=== PATIENT | male | born 1940 | race Caucasian/White ===

== ENCOUNTER → 2018-09-30 | Outpatient (CLI) | payer MEDICARE ==
--- NOTE | 2018-09-30 12:32 | P.SLEEP ---
History of Present Illness H&P Date: 09/30/18 This is a 78-year-old male patient with known history of obstructive sleep apnea. The patient is known to me. I seen this patient in my clinic in the past. He is coming in for ongoing issues regarding his LUCY treatment. Furthermore, it was noted that his pacemaker has been pacing him more abundantly and this was a concern that was raised by the cardiology. For that reason the patient was sent to the sleep center for reevaluation. This patient has severe LUCY with an AHI of 65. Upon initial titration he was titrated to a BiPAP pressure of 17/11. During follow-up visits in my office, he was having difficulties in tolerating the high pressures and I lowered pressures down to 14 /10. My last evaluation this patient was back in September 2017 and he requested an increase in the pressure and I was able to increase his is BiPAP pressure to 16/12 cm of water. Back then he was compliant and he was averaging more than 8 hours of BiPAP use every night. The patient continues to be compliant with his BiPAP treatment. He has and all other generation ResMed S9 series. I noted that his AHI while on treatment quite high. It was noted that his AHI last night was 35. He is not seeing the benefits used in the past. For that reason we are recommending a titration to update his machine and pressure setting. He currently uses a nose mask. He is known to have congestion heart failure, hypertension, hypothyroidism, diabetes mellitus and hyperlipidemia. His weight has been stable. He is possibly snoring while on BiPAP treatment. No symptoms of restless leg syndrome. No edema lower extremity. He has remote history of pulmonary embolism and he is on anticoagulants lifetime. Review of Systems Constitutional: Reports daytime sleepiness, Reports fatigue Eyes: denies as per HPI, denies blurred vision, denies bulging eye, denies decreased vision, denies diplopia, denies discharge, denies dry eye, denies irritation, denies itching, denies pain, denies photophobia, denies loss of peripheral vision, denies loss of vision, denies tunnel vision/blind spots Ears: deny: decreased hearing, ear discharge, earache, tinnitus Ears, nose, mouth and throat: Reports as per HPI Cardiovascular: Reports decreased exercise tolerance, Reports dyspnea on exertion, Denies chest pain, Denies shortness of breath Respiratory: Reports dyspnea Gastrointestinal: Denies abdominal pain, Denies diarrhea, Denies nausea, Denies vomiting Genitourinary: Reports as per HPI Musculoskeletal: Reports as per HPI Musculoskeletal: absent: ankle pain, ankle stiffness, ankle swelling, as per HPI , elbow pain, elbow stiffness, elbow swelling, foot pain, foot stiffness, foot swelling, hand pain, hand stiffness, hand swelling, hip pain, hip stiffness, hip swelling, knee pain, knee stiffness, knee swelling, shoulder pain, shoulder stiffness, shoulder swelling, wrist pain, wrist stiffness, wrist swelling Integumentary: Denies pruritus, Denies rash Neurological: Reports weakness Psychiatric: Reports sleep disturbances Endocrine: Reports as per HPI Hematologic/Lymphatic: Reports as per HPI Allergic/Immunologic: Reports as per HPI Past Medical History Past Medical History: Cancer, Diabetes Mellitus, Deep Vein Thrombosis (DVT), Hearing Disorder / Deafness, Hyperlipidemia, Hypertension, Osteoarthritis (OA), Pulmonary Embolus (PE), Sleep Apnea/CPAP/BIPAP, Thyroid Disorder Additional Past Medical History / Comment(s): Obstructive sleep apnea details as mentioned above, pulmonary embolism, CHF, hypertension, diabetes mellitus type 2, hyperlipidemia, hypothyroidism, remote history of DVT, history of obesity, history of skin cancer and history of pacemaker insertion for bradycardia arrhythmias. History of Any Multi-Drug Resistant Organisms: None Reported Past Surgical History: Heart Catheterization, Joint Replacement, Pacemaker Additional Past Surgical History / Comment(s): Total left knee replacement, pacemaker insertion Past Anesthesia/Blood Transfusion Reactions: No Reported Reaction Type of Cardiac Device: Permanent Pacemaker Device Placement Date:: 2013 Smoking Status: Former smoker - Past Family History Sister(s) Family Medical History: Cancer Medications and Allergies Home Medications Medication Instructions Recorded Confirmed Type Atenolol 100 mg pe PO BID 10/05/15 10/05/15 History Citalopram Hydrobromide [CeleXA] 10 mg PO DAILY 10/05/15 10/05/15 History Cyanocobalamin (Vitamin B-12) 2,000 mcg PO DAILY 10/05/15 10/07/15 History [Vitamin B-12] Furosemide 20 mg PO DAILY 10/05/15 10/05/15 History Insulin Aspart [NovoLOG Flexpen] 20 units SQ AC-TID 10/05/15 10/07/15 History Insulin Detemir [Levemir Flextouch] 60 units SQ BID 10/05/15 10/07/15 History Levothyroxine Sodium [Synthroid] 137 mcg PO DAILY 10/05/15 10/05/15 History Losartan/Hydrochlorothiazide 1 tab PO DAILY 10/05/15 10/05/15 History [Losartan-Hctz 100-12.5 mg Tab] Potassium Chloride [Klor-Con M10] 10 meq PO DAILY 10/05/15 10/05/15 History Rosuvastatin Calcium [Crestor] 5 mg PO HS 10/05/15 10/05/15 History Warfarin Sodium 5 mg PO SUMOTUWETHFR 10/05/15 10/05/15 History amLODIPine BESYLATE [Amlodipine 10 mg PO DAILY 10/05/15 10/05/15 History Besylate] Allergies Allergy/AdvReac Type Severity Reaction Status Date / Time No Known Allergies Allergy Verified 10/05/15 10:35 Physical Exam Gen. appearance, comfortable likely distress.The patient appeared well nourished and normally developed. Vital signs as documented. Head exam is unremarkable. No scleral icterus or corneal arcus noted. Neck is without jugular venous distension, thyromegaly, or carotid bruits. Carotid upstrokes are brisk bilaterally. Lungs are clear to auscultation and percussion. Cardiac exam reveals the PMI to be normally sized and situated. Rhythm is regular. First and second heart sounds normal. No murmurs, rubs or gallops. Abdominal exam reveals normal bowel sounds, no masses, no organomegaly and no aortic enlargement. Extremities are nonedematous and both femoral and pedal pulses are normal. Neurologically awake and alert and there is no focal neurological deficit. Psychiatrically the patient has no anxiety or depression.Examination of the skin revealed no evidence of significant rashes, suspicious appearing nevi or other concerning lesions. Assessment and Plan Assessment: 1 obstructive sleep apnea syndrome. The patient has severe LUCY with an AHI of 65 and currently is on a BiPAP pressure of 16/12 cm of water. The patient's treatment is suboptimal. He remains asymptomatic. He continues to have residual respiratory events while being on BiPAP therapy as evident on his older generation ResMed S9 series. The patient is coming in for reevaluation. A repeat BiPAP titration will be done. 2 congestion heart failure 3 history of pacemaker insertion for bradycardia arrhythmias 4 remote history of DVT and pulmonary embolism 5 hypertension 6 diabetes mellitus type 2 7 hyperlipidemia 8 hypothyroidism Plan The patient will be sent for another BiPAP titration. His machine will be updated. He'll be offered a new machine with a updated pressure setting. We will monitor his compliance carefully to make sure his AHI is well brought below 5. He has severe LUCY baseline. Encourage weight loss. Optimize rest of the risk factors for cardiovascular disease. 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 Sleep Note - Sleep Note Sleep Note: Temperature: 98 Pulse Rate: 77 Respiratory Rate:18 Blood Pressure: 145/71 SpO2: 98 Height: 5 9 Weight: 252 BMI: 37.2 Neck Circumference:17
== END | disposition home or self-care (01) ==
LOC: SLEEP 11:05
PROVIDERS: ATTEND Internal Medicine Critical Care Medicine
DX: G47.33 Obstructive sleep apnea (adult) (pediatric) (principal); I11.0 Hypertensive heart disease with heart failure; I50.9 Heart failure, unspecified; E11.9 Type 2 diabetes mellitus without complications; E78.5 Hyperlipidemia, unspecified; E03.9 Hypothyroidism, unspecified; Z86.711 Personal history of pulmonary embolism; Z86.718 Personal history of other venous thrombosis and embolism; Z87.891 Personal history of nicotine dependence; Z95.0 Presence of cardiac pacemaker; Z79.4 Long term (current) use of insulin; Z79.01 Long term (current) use of anticoagulants; Z79.899 Other long term (current) drug therapy
CPT/HCPCS: 99211

== ENCOUNTER → 2023-05-28 | Outpatient (CLI) | payer MEDICARE ==
[2023-05-28 16:53] LABS: Basophils # (A) 0.05 X 10*3/uL (0.00-0.10); Basophils % (A) 0.6 %; Eosinophils # (A) 0.05 X 10*3/uL (0.04-0.35); Eosinophils % (A) 0.6 %; HCT 55.7 % (39.6-50.0); Lymphocytes # (A) 1.79 X 10*3/uL (0.90-5.00); Lymphocytes % (A) 20.3 %; MCH 30.4 pg (27.0-32.0); MCHC 32.3 d/dL (32.0-37.0); MCV 94.1 FL (80.0-97.0); Monocytes % (A) 7.9 %; NRBC Per 100 WBC 0 X 10*3/uL (0.00-0.01); Neutrophils % (A) 70.4 %; Platelet Count 143 X 10*3/uL (140-440); RBC 5.92 X 10*6/uL (4.40-5.60); RDW 14.7 % (11.5-14.5); WBC 8.81 X 10*3/uL (4.50-10.00)
[2023-05-28 19:17] LABS: Blood Urea Nitrogen 17.7 mg/dL (9.0-27.0); Calcium 9.3 mg/dL (8.7-10.3); Carbon Dioxide 23.9 mmol/L (21.6-31.8); Chloride 104 mmol/L (96-109); Glucose 262 mg/dL (70-110); Potassium 4.5 mmol/L (3.5-5.5); Sodium 141 mmol/L (135-145)
== END | disposition home or self-care (01) ==
LOC: LABPAT 10:40
PROVIDERS: ATTEND Urology
DX: Z01.812 Encounter for preprocedural laboratory examination (principal); R31.0 Gross hematuria
CPT/HCPCS: 36415; 80048; 85025

== ENCOUNTER → 2023-08-14 | Outpatient (CLI) | payer MEDICARE ==
[2023-08-14 15:29] LABS: BUN/Creat Ratio 12.64 Ratio (12.00-20.00); Blood Urea Nitrogen 13.9 mg/dL (9.0-27.0); Calcium 9.4 mg/dL (8.7-10.3); Carbon Dioxide 28.4 mmol/L (21.6-31.8); Chloride 106 mmol/L (96-109); Glucose 143 mg/dL (70-110); Sodium 144 mmol/L (135-145)
[2023-08-14 15:40] LABS: Basophils # (A) 0.07 X 10*3/uL (0.00-0.10); Basophils % (A) 0.8 %; Eosinophils # (A) 0.07 X 10*3/uL (0.04-0.35); Eosinophils % (A) 0.8 %; HCT 49.5 % (39.6-50.0); HGB 16.1 g/dL (13.0-17.0); Lymphocytes # (A) 2.02 X 10*3/uL (0.90-5.00); Lymphocytes % (A) 22.9 %; MCH 31.9 pg (27.0-32.0); MCHC 32.5 g/dL (32.0-37.0); Mean Platelet Volume 11.1 FL (9.5-12.2); Monocytes # (A) 0.79 X 10*3/uL (0.20-1.00); Monocytes % (A) 8.9 %; NRBC Per 100 WBC 0 X 10*3/uL (0.00-0.01); Neutrophils # (A) 5.86 X 10*3/uL (1.80-7.70); Neutrophils % (A) 66.3 %; Platelet Count 162 X 10*3/uL (140-440); RBC 5.05 X 10*6/uL (4.40-5.60); RDW 13.6 % (11.5-14.5); WBC 8.84 X 10*3/uL (4.50-10.00)
== END | disposition home or self-care (01) ==
LOC: LABPAT 09:14
PROVIDERS: ATTEND Urology
DX: Z01.812 Encounter for preprocedural laboratory examination (principal); C67.2 Malignant neoplasm of lateral wall of bladder
CPT/HCPCS: 36415; 80048; 85025

== ENCOUNTER 2023-08-22 05:40 | Day surgery (SDC) | payer MEDICARE ==
--- NOTE | 2023-08-21 07:29 | P.GSHP ---
History of Present Illness H&P Date: 08/21/23 Chief Complaint: Bladder cancer The patient is an 82-year-old white male who underwent photovaporization of the prostate on 2 occasions in 2019. He now presents with urinary urge incontinence and occasional incontinence without awareness, requiring the use of 2 briefs daily. He has been found to empty his bladder incompletely. There is evidence of hematuria. Cystoscopy revealed erythema of the lateral bladder murphy. He underwent cystoscopy with bladder biopsies in 06/06/2023. The right lateral bladder wall biopsy revealed noninvasive, low-grade urothelial carcinoma. The remaining biopsies were negative. He now comes for formal transurethral resection. He has been cleared by cardiology. He has a Medtronic device and it has been recommended that a magnet be placed over the device while using cautery. - Cardiovascular Cardiovascular: Reports high blood pressure, Reports irregular heart beat - Genitourinary (Male) Genitourinary: Reports incontinence Past Medical History Past Medical History: Cancer, Diabetes Mellitus, Deep Vein Thrombosis (DVT), Hearing Disorder / Deafness, Hyperlipidemia, Hypertension, Osteoarthritis (OA), Pulmonary Embolus (PE), Sleep Apnea/CPAP/BIPAP, Thyroid Disorder Additional Past Medical History / Comment(s): Obstructive sleep apnea USES CPAP. Pulmonary embolism, CHF, hypertension, diabetes mellitus type 2, hyperlipidemia, hypothyroidism, remote history of DVT, history of obesity, history of skin cancer and history of pacemaker insertion for bradycardia arrhythmias. History of Any Multi-Drug Resistant Organisms: None Reported Past Surgical History: Heart Catheterization, Joint Replacement, Pacemaker Additional Past Surgical History / Comment(s): BLADDER BX ON 06/06/23, POS. NEW REPLACED PACEMAKER 07/13/23 @ [facility]. Total left knee replacement, pacemaker insertion Past Anesthesia/Blood Transfusion Reactions: No Reported Reaction Type of Cardiac Device: Permanent Pacemaker Device Placement Date:: 2006, 2013, 2022 Past Psychological History: Depression Additional Psychological History / Comment(s): BEGINNING DEMENTIA, LIVES ALONE, SIGNS HIS OWN CONSENT. DAUGHTER, MELISSA BENNETT IS POA. Smoking Status: Former smoker Past Alcohol Use History: Occasional Additional Past Alcohol Use History / Comment(s): SMOKED 15 YEARS, 1/2 PPD, QUIT 1980. Past Drug Use History: None Reported - Past Family History Sister(s) Family Medical History: Cancer Medications and Allergies Home Medications Medication Instructions Recorded Confirmed Type Citalopram Hydrobromide [CeleXA] 20 mg PO DAILY 10/05/15 08/19/23 History Insulin Detemir [Levemir Flextouch] 16 units SQ [facility] [place] 10/05/15 08/19/23 History Levothyroxine Sodium [Synthroid] 150 mcg PO DAILY 10/05/15 08/19/23 History Potassium Chloride [Klor-Con M10] 10 meq PO DAILY 10/05/15 08/19/23 History Rosuvastatin Calcium [Crestor] 20 mg PO HS 10/05/15 08/19/23 History Apixaban [Eliquis] 5 mg PO BID 05/31/23 08/19/23 History Aspirin [Adult Low Dose Aspirin EC] 81 mg PO DAILY 05/31/23 08/19/23 History Empagliflozin [Jardiance] 25 mg PO QAM 05/31/23 08/19/23 History Glimepiride [Amaryl] 4 mg PO [facility] [place] 05/31/23 08/19/23 History Iron(Unk) 27 mg PO HS 05/31/23 08/19/23 History Isosorbide Mononitrate ER [Imdur] 30 mg PO DAILY 05/31/23 08/19/23 History Magnesium (Unk) 400 mg PO HS 05/31/23 08/19/23 History Memantine HCl [Namenda] 5 mg PO BID 05/31/23 08/19/23 History Multivitamins, Thera [Multivitamin 1 tab PO DAILY 05/31/23 08/19/23 History (formulary)] Sacubitril/Valsartan [Entresto 49 1 tab PO BID 05/31/23 08/19/23 History mg-51 mg Tablet] Torsemide [Demadex] 20 mg PO DAILY 05/31/23 08/19/23 History carvediloL [Coreg] 12.5 mg PO BID 05/31/23 08/19/23 History Pantoprazole [Protonix] 40 mg PO QAM 08/19/23 08/19/23 History Allergies Allergy/AdvReac Type Severity Reaction Status Date / Time No Known Allergies Allergy Verified 08/19/23 10:24 Surgical - Exam - General well developed, well nourished, no distress - Respiratory normal respiratory effort - Abdomen Abdomen: soft, non tender, no guarding, no rigid, no rebound - Genitourinary normal penis with no external lesions, testicles non-tender - Psychiatric oriented to time, oriented to person, oriented to place, speech is normal, memory intact Assessment and Plan (1) Malignant neoplasm of lateral wall of bladder Status: Acute Code(s): C67.2 - MALIGNANT NEOPLASM OF LATERAL WALL OF BLADDER SNOMED Code(s): 071773369 Plan: Cystoscopy, transurethral resection of bladder tumor. The patient is aware of potential risks, which include anesthesia, bleeding, infection, and bladder perforation. Gemcitabine will be instilled into the bladder post resection to reduce the likelihood of recurrent malignancy.
[2023-08-22] MEDS ORDERED: DEXAMETHASONE SOD PHOSPHATE 4 MG/ML 1 ML VIAL IV ONE (05:45)
[2023-08-22] MEDS ORDERED: ONDANSETRON 4 MG/2 ML VIAL IVP ONE (05:45)
[2023-08-22] MEDS ORDERED: LIDOCAINE 1% (10MG/ML) FOR IV START INTRADERMA PRN (05:45)
[2023-08-22] MEDS ORDERED: LACTATED RINGERS 1,000 ML IV SCH (05:45)
[2023-08-22 06:45] LABS: Glucose,Whole Blood 114 mg/dL (70-110)
[2023-08-22] MEDS ORDERED: HYDROmorphone 0.5 MG/0.5 ML SYRINGE IVP PRN (07:00)
[2023-08-22] MEDS ORDERED: GEMCITABINE HCL 1,000 MG in SODIUM CHLORIDE 0.9% 40 ML, EMPTY SYRINGE 1 SYR MISCELLANE ONE ×4 (07:00)
[2023-08-22] MEDS ORDERED: fentaNYL (PF) 50 MCG/ML 2 ML AMP ONE (07:24)
[2023-08-22] MEDS ORDERED: SUCCINYLCHOLINE CHLORIDE 200 MG/10 ML VIAL IV ONE (07:24)
[2023-08-22] MEDS ORDERED: PROPOFOL 10 MG/ML 20 ML VIAL IV ONE (07:24)
[2023-08-22] MEDS ORDERED: NEOSTIGMINE 1 MG/ML 10 ML VIAL ONE (07:24)
[2023-08-22] MEDS ORDERED: PHENYLEPHRINE-0.9% NACL SYG 1,000 MCG/10 ML SYRINGE ONE (07:24)
[2023-08-22] MEDS ORDERED: LIDOCAINE 1% INJ 10MG/ML (20 ML MDV) ONE (07:24)
[2023-08-22] MEDS ORDERED: GLYCOPYRROLATE 0.2 MG/ML 2 ML VIAL ONE (07:24)
[2023-08-22] MEDS ORDERED: ROCURONIUM 10 MG/ML (5 ML VIAL) IV ONE (07:24)
--- NOTE | 2023-08-22 08:40 | P.OP ---
Date of Procedure: 08/22/23 Preoperative Diagnosis: Urothelial carcinoma of the bladder Postoperative Diagnosis: Same Procedure(s) Performed: Cystoscopy, transurethral resection of bladder tumor (medium), instillation of intravesical gemcitabine Anesthesia: ALTAGRACIA Surgeon: Say Ryder Estimated Blood Loss (ml): 5 IV fluids (ml): 500 Pathology: other Condition: stable Disposition: PACU Indications for Procedure: The patient is an 82-year-old white male who underwent photovaporization of the prostate on 2 occasions in 2019. He now presents with urinary urge incontinence and occasional incontinence without awareness, requiring the use of 2 briefs daily. He has been found to empty his bladder incompletely. There is evidence of hematuria. Cystoscopy revealed erythema of the lateral bladder murphy. He underwent cystoscopy with bladder biopsies in 06/06/2023. The right lateral bladder wall biopsy revealed noninvasive, low-grade urothelial carcinoma. The remaining biopsies were negative. He now comes for formal transurethral resection. Operative Findings: Flat right lateral bladder wall tumor, resected completely. Description of Procedure: The patient was taken in the operating room and placed in the dorsal lithotomy position, with his legs supported in Harpal stirrups. The external genitalia was prepped and draped sterilely. The 25-Lao ACMI resectoscope sheath was introduced into the bladder. The bladder was inspected. Both ureteral orifices were of normal anatomic location and configuration, and clear urine effluxed from both. The entire bladder was examined, revealing no papillary tumors. However, subtle mucosal changes were seen on the right lateral bladder wall, surrounding the scar from the previous biopsy. The prostatic fossa was open, with no urothelial changes within it. Using the bipolar cutting loop, the flat tumor on the right lateral bladder wall was resected down to the superficial muscle. Excellent hemostasis was attained. There was no evidence of bladder perforation. The resected tissue was saved and sent for pathologic examination. An 18-Lao Rosario catheter was inserted. The return was clear. Gemcitabine 2 g was instilled into the bladder. The Rosario catheter was clamped. The patient tolerated the procedure well and was taken to the recovery room in stable condition.
[2023-08-22 09:12] VITALS: TEMP 97.3
[2023-08-22 10:03] VITALS: RESP 16
[2023-08-22 10:28] VITALS: BP 148/82; PULSE 69
== END 2023-08-22 11:08 | disposition home or self-care (01) ==
LOC: OR 05:40
PROVIDERS: ATTEND Urology
DX: C67.2 Malignant neoplasm of lateral wall of bladder (principal); E11.9 Type 2 diabetes mellitus without complications; E78.5 Hyperlipidemia, unspecified; G47.33 Obstructive sleep apnea (adult) (pediatric); I11.0 Hypertensive heart disease with heart failure; I50.9 Heart failure, unspecified; E03.9 Hypothyroidism, unspecified; F32.A Depression, unspecified; F10.90 Alcohol use, unspecified, uncomplicated; M19.90 Unspecified osteoarthritis, unspecified site; Z90.79 Acquired absence of other genital organ(s); Z86.711 Personal history of pulmonary embolism; Z85.828 Personal history of other malignant neoplasm of skin; Z96.652 Presence of left artificial knee joint; Z87.891 Personal history of nicotine dependence; Z79.899 Other long term (current) drug therapy; Z79.890 Hormone replacement therapy; Z79.01 Long term (current) use of anticoagulants; Z79.84 Long term (current) use of oral hypoglycemic drugs
CPT/HCPCS: 52235; J0330; J1100; J2710; J0690; J2405; J2001; J3010; J2704; J2371

== ENCOUNTER 2024-03-31 06:21 | Day surgery (SDC) | payer MEDICARE ==
[2024-03-26 08:50] VITALS: BMI 29.0
[~2024-03-31 06:21] MED LIST: LIDOCAINE 1% (10MG/ML) FOR IV START INTRADERMA PRN
[2024-03-31 06:45] VITALS: TEMP 97.1
[2024-03-31] MEDS: LACTATED RINGERS 1,000 ML IV SCH (06:52)
[2024-03-31 07:01] LABS: Glucose,Whole Blood 124 mg/dL (70-110)
[2024-03-31] MEDS: IV FLUID CONTINUATION 1,000 ML IV ONE ×2 (07:01→07:12)
[2024-03-31] MEDS ORDERED: LIDOCAINE 1% INJ 10MG/ML (20 ML MDV) ONE (07:15)
[2024-03-31] MEDS ORDERED: PROPOFOL 10 MG/ML 20 ML VIAL IV ONE (07:15)
[2024-03-31 08:02] VITALS: BP 127/78; PULSE 71; RESP 18
--- NOTE | 2024-03-31 08:38 | P.PCN ---
Date of Procedure: 03/31/24 Procedure(s) Performed: BRIEF HISTORY: Patient is a 83-year-old pleasant White male scheduled for an elective colonoscopy as a part of evaluation for history of colon polyps. PROCEDURE PERFORMED: Colonoscopy with snare polypectomy.. PREOPERATIVE DIAGNOSIS: History of colon polyps. IV sedation per Anesthesia. PROCEDURE: After informed consent was obtained, the patient, was brought into the endoscopy unit. IV sedation was administered by Anesthesia under continuous monitoring. Digital rectal examination was normal. Initially the Olympus CF-160 flexible video colonoscope was then inserted in the rectum, gradually advanced into the cecum without any difficulty. Careful examination was performed as the scope was gradually being withdrawn. Ileocecal valve and the appendiceal orifice were visualized and appeared normal. Prep was excellent. Mucosa of the cecum, pain (descending colon there was a 5 mm sessile polyp that was removed by cold snare polypectomy. Rest of the ascending colon, transverse colon, descending colon, sigmoid colon, and rectum appeared normal. Scattered sigmoid diverti culosis. Retroflexion was performed in the rectum and no lesions were seen. The patient tolerated the procedure well. IMPRESSION: 5 mm ascending colon polyp status post cold snare polypectomy Rest of the colon appeared normal Scattered small diverticula RECOMMENDATIONS: Findings of this examination were discussed with the patient as well as his family. He was advised to follow-up with the biopsy results. Recommend a high-fiber diet and fiber supplement on regular basis.
== END 2024-03-31 08:31 | disposition home or self-care (01) ==
LOC: ORWHC2ENDO 06:21
PROVIDERS: ATTEND Internal Medicine Gastroenterology
DX: K57.30 Diverticulosis of large intestine without perforation or abscess without bleeding (principal); E78.5 Hyperlipidemia, unspecified; I25.42 Coronary artery dissection; E03.9 Hypothyroidism, unspecified; I11.0 Hypertensive heart disease with heart failure; I82.409 Acute embolism and thrombosis of unspecified deep veins of unspecified lower extremity; I26.99 Other pulmonary embolism without acute cor pulmonale; H91.90 Unspecified hearing loss, unspecified ear; C44.90 Unspecified malignant neoplasm of skin, unspecified; Z95.0 Presence of cardiac pacemaker; Z79.4 Long term (current) use of insulin; Z79.82 Long term (current) use of aspirin; Z79.890 Hormone replacement therapy; Z79.899 Other long term (current) drug therapy; Z79.61 Long term (current) use of immunomodulator
CPT/HCPCS: 88305; 45385; J2001; J2704

== ENCOUNTER → 2024-11-03 | Outpatient (CLI) | payer MEDICARE ==
[2024-11-03 14:17] LABS: ALT 15 U/L (4-49); AST 25 U/L (17-59); African American GFR (CKD) >90 (>60 ml/min/1.73 sqM); Albumin 3.5 g/dL (3.5-5.0); Albumin/Globulin Ratio 1.3; Alkaline Phosphatase 94 U/L (38-126); Anion Gap 6 mmol/L; Blood Urea Nitrogen 20 mg/dL (9-20); Calcium 8.9 mg/dL (8.4-10.2); Carbon Dioxide 32 mmol/L (22-30); Chloride 97 mmol/L (98-107); Globulin 2.7 g/dL; Glucose 151 mg/dL (74-99); Non-African American GFR(CKD) 84 (>60 ml/min/1.73 sqM); Potassium 4.8 mmol/L (3.5-5.1); Sodium 135 mmol/L (137-145); Total Bilirubin 0.9 mg/dL (0.2-1.3); Total Protein 6.2 g/dL (6.3-8.2)
--- NOTE | 2024-11-03 16:14 | CT ---
EXAMINATION TYPE: CT ChestAbdPelvis w con DATE OF EXAM: 11/03/2024 COMPARISON: None CLINICAL INDICATION: Male, 84 years old with history of R63.[address] DLP: 1166 mGycm Automated exposure control for dose reduction was used. CONTRAST: CT scan of the chest, abdomen and pelvis is performed with Oral Contrast and with IV Contrast, patien t injected with 100 mL of Isovue 300. FINDINGS: CT chest: There is a moderate to large right pleural effusion. There is a 9 mm nodule in the right upper lobe. The left lung is clear. There is no abnormal airspace/consolidative density or abnormal interstitial density. The great vessels and chest are normal there is no mediastinal, hilar or axillary adenopathy. There i s an left atrial occlusion device. There is a 2-lead cardiac pacemaker. No focal osseous lesions are seen. CT abdomen and pelvis: There is no gallstones, wall thickening or distention. There is a mild amount of pericholecystic flui d present question of acalculous acute cholecystitis. There is no focal mass or organomegaly involving the liver, pancreas, spleen or adrenal glands.. There is no solid renal mass or hydronephrosis. There is no retroperitoneal adenopathy or hemorrhage in the caliber of the abdominal aorta is normal. The bowel loops are normal in caliber and there is no dilatation or obstruction. There is moderate di ffuse thickening of the wall the sigmoid colon region in question acute or chronic inflammatory proce ss possibly chronic diverticulitis. There is no pelvic mass or adenopathy. There is no free fluid within the pelvis. No focal osseous lesions are seen. Soft tissue the abdomen and pelvis are normal. IMPRESSION: 1. Large right pleural effusion. 2. 9 mm right upper lobe pulmonary nodule. Given the large right effusion, PET scan would be useful f or further evaluation. 3. Moderate diffuse thickening of the sigmoid colon wall region the question of inflammatory processe s described above. No bowel obstruction. 4. Mild pericholecystic fluid raising the question of acalculous acute cholecystitis [facility], , 11/03/2024 4:12 PM
[2024-11-03 19:24] LABS: Basophils # (A) 0.03 X 10*3/uL (0.00-0.10); Basophils % (A) 0.5 %; Eosinophils # (A) 0.07 X 10*3/uL (0.04-0.35); Eosinophils % (A) 1.1 %; HGB 15.4 g/dL (13.0-17.0); Lymphocytes # (A) 1.17 X 10*3/uL (0.90-5.00); Lymphocytes % (A) 17.7 %; MCH 28.5 pg (27.0-32.0); MCHC 32.1 g/dL (32.0-37.0); MCV 88.9 FL (80.0-97.0); Mean Platelet Volume 11.1 FL (9.5-12.2); Monocytes # (A) 0.55 X 10*3/uL (0.20-1.00); Monocytes % (A) 8.3 %; NRBC Per 100 WBC 0 X 10*3/uL (0.00-0.01); Neutrophils # (A) 4.76 X 10*3/uL (1.80-7.70); Neutrophils % (A) 72.1 %; Platelet Count 167 X 10*3/uL (140-440); RDW 14.4 % (11.5-14.5)
== END | disposition home or self-care (01) ==
LOC: RADCTMAIN 13:23
PROVIDERS: ATTEND Internal Medicine Critical Care Medicine
DX: K81.0 Acute cholecystitis (principal); J90 Pleural effusion, not elsewhere classified; R91.1 Solitary pulmonary nodule; K63.89 Other specified diseases of intestine; R63.4 Abnormal weight loss
CPT/HCPCS: 84153; 80053; 85025; 83036; 71260; 74177; 36415; Q9967

== ENCOUNTER 2024-11-27 10:31 | Day surgery (SDC) | payer MEDICARE ==
[2024-11-27 11:57] LABS: Glucose,Whole Blood 96 mg/dL (70-110)
--- NOTE | 2024-11-27 13:15 | XR ---
EXAMINATION TYPE: XR chest 1V portable DATE OF EXAM: 11/27/2024 1:07 PM COMPARISON: None. CLINICAL INDICATION: Male, 84 years old with history of POST THORACENTESIS, TECHNIQUE: XR chest 1V portable views of the chest are obtained. FINDINGS: Demonstrated are scattered senescent parenchymal change. Small right apical pneumothorax estimated a t less than 10%. There is no evidence for focal infiltrate. The heart is stable. Hilar and mediastinal structures are within normal limits. Degenerative changes are seen of the dorsal spine. IMPRESSION: 1. Small right apical pneumothorax estimated at less than 10%. [facility], , 11/27/2024 1:13 PM
[2024-11-27 13:58] VITALS: BP 136/73; PULSE 70; RESP 17
--- NOTE | 2024-12-01 10:09 | P.PCN ---
Date of Procedure: 11/27/24 Preoperative Diagnosis: Right-sided pleural effusion Postoperative Diagnosis: Same Procedure(s) Performed: Thoracentesis, right-sided, ultrasound-guided Anesthesia: local Surgeon: Cali Mike Estimated Blood Loss (ml): 0 Pathology: other Condition: stable Disposition: same day Operative Findings: Procedure was done with ultrasound guidance A time out was performed and the chest x-ray was reviewed, the appropriate side was confirmed and marked. My hands were washed immediately prior to the procedure. I wore a surgical cap, mask with protective eyewear, sterile gown and sterile gloves throughout the procedure. The patient was prepped and draped in a sterile manner using chlorhexidine scrub after the appropriate level was percussed and confirmed by ultrasound. 1% lidocaine was used to anesthesize the skin, subcutaneous tissue, superior aspect of the rib periosteum and parietal pleura. A finder needle was then introduced over the superior aspect of the rib to locate the pleural fluid; 2colored fluid was aspirated at a depth of approximately 2 cm. A 10-blade scalpel was used to arlette the skin at the insertion site. The [id number] needle was then introduced through the skin incision into the pleural space using negative aspiration pressure and the red c olometric indicator to confirm appropriate positioning of the needle. The thoracentesis catheter was then threaded without difficulty. 1500ml of turbid colored fluid was removed without difficulty. The catheter was then removed. No immediate complications were noted during the procedure. A post-procedure chest x-ray is pending at the time of this note. The fluid will be sent for studies. Estimated blood loss is 0cc
== END 2024-11-27 13:59 | disposition home or self-care (01) ==
LOC: ORWHC2ENDO 10:31
PROVIDERS: ATTEND Internal Medicine Critical Care Medicine
DX: J90 Pleural effusion, not elsewhere classified (principal)
CPT/HCPCS: 32554; 71045; 88108; 88305; 88341; 88342

== ENCOUNTER → 2024-11-27 | Outpatient (CLI) | payer MEDICARE ==
--- NOTE | 2024-11-27 11:23 | US ---
EXAMINATION TYPE: US chest DATE OF EXAM: 11/27/2024 COMPARISON: NONE CLINICAL INDICATION: Male, 84 years old with history of J90 PLEURAL EFFUSION; right side pleural effu huseyin TECHNIQUE: Grayscale imaging of the chest. Targeted ultrasound of the posterior lower right hemithor ax FINDINGS: EXAM MEASUREMENTS: Right Pleural Effusion pocket size: 12.2 cm Right skin surface to fluid distance: 1.8 Right side marked for possible thoracentesis outside the dept. Pulmonologists are able to review the images in the patient?s EMR. IMPRESSIONS: As above [facility], , 11/27/2024 11:21 AM
--- NOTE | 2024-11-27 12:49 | P.PCN ---
Date of Procedure: 11/27/24 Preoperative Diagnosis: Right-sided pleural effusion Postoperative Diagnosis: Same Procedure(s) Performed: Thoracentesis, right-sided, ultrasound-guided Anesthesia: local Surgeon: Cali Mike Estimated Blood Loss (ml): 0 Pathology: other Condition: stable Disposition: same day Operative Findings: Procedure was done with ultrasound guidance A time out was performed and the chest x-ray was reviewed, the appropriate side was confirmed and marked. My hands were washed immediately prior to the procedure. I wore a surgical cap, mask with protective eyewear, sterile gown and sterile gloves throughout the procedure. The patient was prepped and draped in a sterile manner using chlorhexidine scrub after the appropriate level was percussed and confirmed by ultrasound. 1% lidocaine was used to anesthesize the skin, subcutaneous tissue, superior aspect of the rib periosteum and parietal pleura. A finder needle was then introduced over the superior aspect of the rib to locate the pleural fluid; 2colored fluid was aspirated at a depth of approximately 2 cm. A 10-blade scalpel was used to arlette the skin at the insertion site. The [id number] needle was then introduced through the skin incision into the pleural space using negative aspiration pressure and the red c olometric indicator to confirm appropriate positioning of the needle. The thoracentesis catheter was then threaded without difficulty. 1500ml of turbid colored fluid was removed without difficulty. The catheter was then removed. No immediate complications were noted during the procedure. A post-procedure chest x-ray is pending at the time of this note. The fluid will be sent for studies. Estimated blood loss is 0cc
== END | disposition home or self-care (01) ==
LOC: RADUSWWP 10:28
PROVIDERS: ATTEND Internal Medicine Critical Care Medicine
DX: J90 Pleural effusion, not elsewhere classified (principal)
CPT/HCPCS: 76604

== ENCOUNTER → 2024-12-18 | Outpatient (CLI) | payer MEDICARE ==
--- NOTE | 2024-12-20 11:42 | PE ---
EXAMINATION TYPE: PET CT fusion skull to thigh DATE OF EXAM: 12/18/2024 CLINICAL INDICATION:Male, 84 years old with history of R91.1 Lung Nodule; TECHNIQUE: Following the intravenous administration of 9.74 mCi of F-18 FDG, whole body images are performed from the skull base to the Mid thigh. Images are reviewed on the computer in the coronal, axial, and sagittal planes. Reconstructed rotating images are created on independent workstation and reviewed on the computer. A non-contrast CT is performed in conjunction with the PET scan. Glucose level 97 mg/dL CT DLP: 386.35 mGycm, Automated exposure control for dose reduction was used. COMPARISON: CT 11/03/2024, PET/CT None, MRI: None FINDINGS: Mediastinal SUV mean is 1.89. Hepatic parenchyma SUV mean is 2.41. SKULL BASE AND NECK: No suspicious radiotracer activity. CHEST, MEDIASTINUM, AND HILAR REGION: No suspicious radiotracer activity. ABDOMEN AND PELVIS: No suspicious radiotracer activity. MUSCULOSKELETAL STRUCTURES: No suspicious radiotracer activity. 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 Much larger pleural effusion. Left cardiac conduction device with leads terminating in the right ventricl e and right atrium. The heart is enlarged for size. Atrial appendage occlusion device present. 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 Findings stable from prior exam and did not demonstrate contrast within the lumen on 11/03/2024 sugges ting benign etiology. IMPRESSION: No suspicious radiotracer activity. Area of concern within the right lung is not definitively visuali zed, no abnormal uptake identified. Finding suggests possible atelectasis on prior exam given its loc ation next to the pleural fusion edge. Consider additional 6 month follow-up CT possibly right after paracentesis. [facility], , 12/20/2024 11:39 AM
== END | disposition home or self-care (01) ==
LOC: RADPETMAIN 13:04
PROVIDERS: ATTEND Internal Medicine Critical Care Medicine
DX: R91.1 Solitary pulmonary nodule (principal)
CPT/HCPCS: 78815; A9552